=== PATIENT | female | born 1995 | race Hispanic/Latino ===

== ENCOUNTER 2016-11-19 08:51 | Emergency (ER) | payer OTHER ==
[2016-11-19 09:56] LABS: Pregnancy Test - Urine (BHCG) Negative (NEGATIVE); Pregu Control Background? CLEAR/WHITE (CLR/WHITE); Pregu Control Bar Appear? YES (CONTROL BAR); Specific Gravity 1.015 (1.002-1.036)
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
== END 2016-11-19 10:40 | disposition home or self-care (01) ==
LOC: NAV ERS 08:51
DX: S90.02XA Contusion of left ankle, initial encounter (principal); S40.812A Abrasion of left upper arm, initial encounter; S50.812A Abrasion of left forearm, initial encounter; F41.9 Anxiety disorder, unspecified; Z79.899 Other long term (current) drug therapy; V49.9XXA Car occupant (driver) (passenger) injured in unspecified traffic accident, initial encounter; Y92.488 Other paved roadways as the place of occurrence of the external cause
CPT/HCPCS: 72040; 81025